=== PATIENT | female | born 1955 | race Caucasian/White ===

== ENCOUNTER 2019-01-27 07:24 | Day surgery (SDC) | payer OTHER ==
[2019-01-27] MEDS ORDERED: LIDOCAINE 4% SOLUTION 50 ML BTL (08:49)
[2019-01-27] MEDS ORDERED: MIDAZOLAM 1 MG/ML 2 ML INJ ×2 (09:28)
[2019-01-27] MEDS ORDERED: FENTAnyl 50 MCG/ML VIAL (09:28)
== END 2019-01-27 12:45 | disposition home or self-care (01) ==
LOC: GIL 07:24
DX: K22.70 Barrett's esophagus without dysplasia (principal); K29.50 Unspecified chronic gastritis without bleeding
CPT/HCPCS: 43239; 88305; 88312; 88313